=== PATIENT | male | born 1930 | race Caucasian/White ===

== ENCOUNTER 2019-06-24 11:41 | Emergency (ER) | payer MEDICARE, OTHER ==
[2019-06-24 13:37] LABS: Urine Appearance Clear; Urine Bilirubin Negative (Negative); Urine Blood Negative (Negative); Urine Color Yellow; Urine Glucose Negative (Negative); Urine Ketones Negative (Negative); Urine Nitrite Negative (Negative); Urine Protein Negative (Negative); Urine Specific Gravity 1.016 (1.010-1.030); Urine Urobilinogen Negative (Negative)
[2019-06-24 14:46] LABS: Hematocrit 33 % (42-52); Hemoglobin 11.1 g/dL (14.0-18.0); Mean Corpuscular HGB Conc 33 g/dL (31-36); Mean Corpuscular Hemoglobin 33 pg (27-31); Mean Corpuscular Volume 98 fL (80-94); Mean Platelet Volume 8.4 fL (7.4-10.4); Platelet Count 87 10^3/uL (150-450); Red Blood Count 3.39 10^6 /uL (4.18-5.48); Red Cell Distribution Width 16 % (10-15); White Blood Count 4.1 10^3/uL (3.5-10.8)
[2019-06-24 14:55] LABS: ABS Eosinophils 0.1 10^3/ul (0-0.6); ABS Lymphocytes 1.4 10^3/ul (1.0-4.8); ABS Monocytes 0.5 10^3/ul (0-0.8); ABS Neutrophils 2.1 10^3/ul (1.5-7.7); Eosinophil % 3.2 %; Lymphocyte % 33.2 %
[2019-06-24 15:06] LABS: Albumin 4.1 g/dL (3.2-5.2); Albumin/Globulin Ratio 1.5 (1-3); BUN/Creatinine Ratio 19.6 (8-20); C Reactive Protein 17.19 mg/L (<8.01); Calcium 8.7 mg/dL (8.6-10.3); EGFR African American 94.4 (>60); Globulin 2.8 g/dL (2-4); Potassium 4.4 mmol/L (3.5-5.0); Total Bilirubin 0.5 mg/dL (0.2-1.0); Total Protein 6.9 g/dL (6.4-8.9)
[2019-06-24 15:24] LABS: Polychromasia 1+
[2019-06-24 15:51] LABS: Troponin I 0.03 ng/mL (<0.04)
[2019-06-24 16:33] LABS: Activated Partial Thrombo Time 29.9 seconds (26.0-38.0)
--- NOTE | 2019-06-24 19:10 | ED ---
GI/ HPI - HPI Summary HPI Summary: 88 year old M presenting to [facility] accompanied by 2 daughters with a chief complaint of hematuria for the past 4 days. Daughter reports productive coughing , diaphoresis, and cold and thus was concerned for a flu. Daughter reports that patient is more confused than the slight confusion present at baseline ever since stroke. Daughter states patient does not complain of any pain. Daughter reports that there has not been any blood identified in the stool as of now. Patient reports that he had a root canal done in 1951 and 3-4 years ago it fell out leading to his visit to the dentist where the remaining pieces were taken out. Patient reports that he has had horrible pain in his gums up to his eye since around 6 months ago. 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 Patient reports that his neck is normal. Per triage, fever, dehydration, weakness, blood in urine, confusion, new incontinence. Pt denies any chills, erythema of eyes, sore throat, CP, SOB, abdominal pain, N/V, dysuria, myalgia, edema, rash, or dizziness.Symptoms aggravated by nothing. Symptoms alleviated by nothing. Hx stroke, leukemia, skin cancer. - History of Current Complaint Chief Complaint: EDGeneral Time Seen by Provider: 06/24/19 14:55 Stated Complaint: BLOOD IN URINE Hx Obtained From: Patient, Family/Print Binding Worker - daughters Onset/Duration: Started Days Ago - 4, Still Present Timing: Lasting Days Pain Intensity: 0 Associated Signs and Symptoms: Positive: Blood w/Stool, Diaphoresis, Hematuria, Other: - confusion, gum pain, fever, dehydration, weakness, new continence;; denies: erythema of eyes, sore throat, CP, SOB, myalgia, edema, rash, or dizziness. Negative: Nausea, Vomiting, Dysuria, Chills, Abdominal Pain - Allergy/Home Medications Allergies/Adverse Reactions: Allergies Allergy/AdvReac Type Severity Reaction Status Date / Time Sulfa (Sulfonamide Allergy Headache Verified 06/24/19 16:13 Antibiotics) PMH/Surg Hx/FS Hx/Imm Hx Cardiovascular History: Reports: Hx Coronary Artery Disease, Hx Hypercholesterolemia, Hx Hypertension GI History: Reports: Hx Gastroesophageal Reflux Disease Neurological History: Reports: Hx CVA Psychiatric History: Reports: Hx Depression - Cancer History Cancer Type, Location and Year: Leukemia, prostate CA Infectious Disease History: No Infectious Disease History: Denies: Traveled Outside the [place] in Last 30 Days - Family History Known Family History: Positive: Cardiac Disease - CAD, Diabetes Family History: Prostate CA. Ovarian CA - Social History Alcohol Use: Rare Hx Substance Use: No Substance Use Type: Reports: None Hx Tobacco Use: No Smoking Status (MU): Never Smoked Tobacco Review of Systems Positive: Fever, Skin Diaphoresis. Negative: Chills Negative: Erythema Negative: Sore Throat Negative: Chest Pain Positive: Cough. Negative: Shortness Of Breath Negative: Abdominal Pain, Vomiting, Nausea Positive: hematuria. Negative: dysuria Positive: Other - denies neck pain. Negative: Myalgia, Edema Negative: Rash Neurological: Other - denies dizziness;; reports confusion All Other Systems Reviewed And Are Negative: Yes Physical Exam - Summary Physical Exam Summary: Constitutional: Well-developed, Well-nourished, Alert. (-) Distressed Skin: Warm, Dry HENT: Normocephalic; Atraumatic Eyes: Conjunctiva normal Neck: Musculoskeletal ROM normal neck. (-) JVD, (-) Stridor, (-) Tracheal deviation Cardio: Rhythm regular, rate normal, Heart sounds normal; Intact distal pulses; The pedal pulses are 2+ and symmetric. Radial pulses are 2+ and symmetric. (-) Murmur Pulmonary/Chest wall: Effort normal. (-) Respiratory distress, (-) Wheezes, (-) Rales Abd: Soft, (-) tenderness, (-) Distension, (-) Guarding, (-) Rebound Musculoskeletal: (-) Edema Lymph: (-) Cervical adenopathy Neuro: Alert, Oriented x3 Psych: Mood and affect Normal Dental: Decay above his right canine which reports as painful no drainable abscess. Triage Information Reviewed: Yes Vital Signs On Initial Exam: Initial Vitals Temp Pulse Resp BP Pulse Ox 99.8 F 59 16 137/69 95 06/24/19 11:50 06/24/19 11:50 06/24/19 11:50 06/24/19 11:50 06/24/19 11:50 Vital Signs Reviewed: Yes Diagnostics - Vital Signs Vital Signs Temp Pulse Resp BP Pulse Ox 06/24/19 18:28 98.1 F 56 18 115/63 93 06/24/19 18:00 19 06/24/19 17:42 25 120/63 06/24/19 17:11 18 109/60 06/24/19 17:00 16 06/24/19 16:41 17 109/59 06/24/19 16:11 57 22 112/60 94 06/24/19 16:00 56 19 94 06/24/19 15:09 56 22 06/24/19 13:48 99.9 F 57 20 135/56 95 06/24/19 11:50 99.8 F 59 16 137/69 95 - Laboratory Lab Results: Lab Results 06/24/19 06/24/19 06/24/19 Range/Units 13:20 14:32 14:32 WBC 4.1 (3.5-10.8) 10^3/uL RBC 3.39 L (4.18-5.48) 10^6 /uL Hgb 11.1 L (14.0-18.0) g/dL Hct 33 L (42-52) % MCV 98 H (80-94) fL MCH 33 H (27-31) pg MCHC 33 (31-36) g/dL RDW 16 H (10-15) % Plt Count 87 L (150-450) 10^3/uL MPV 8.4 (7.4-10.4) fL Neut % (Auto) 51.9 % Lymph % (Auto) 33.2 % Blount % (Auto) 11.5 % Eos % (Auto) 3.2 % Baso % (Auto) 0.2 % Absolute Neuts (auto) 2.1 (1.5-7.7) 10^3/ul Absolute Lymphs (auto) 1.4 (1.0-4.8) 10^3/ul Absolute Monos (auto) 0.5 (0-0.8) 10^3/ul Absolute Eos (auto) 0.1 (0-0.6) 10^3/ul Absolute Basos (auto) 0.0 (0-0.2) 10^3/ul Absolute Nucleated RBC 0.0 10^3/ul Nucleated RBC % 0.0 Polychromasia 1+ Macrocytosis 2+ Elliptocytes 1+ INR (Anticoag Therapy) (0.82-1.09) APTT (26.0-38.0) seconds Sodium 136 (135-145) mmol/L Potassium 4.4 (3.5-5.0) mmol/L Chloride 103 (101-111) mmol/L Carbon Dioxide 27 (22-32) mmol/L Anion Gap 6 (2-11) mmol/L BUN 18 (6-24) mg/dL Creatinine 0.92 (0.67-1.17) mg/dL Est GFR ( Amer) 94.4 (>60) Est GFR (Non-Af Amer) 78.0 (>60) BUN/Creatinine Ratio 19.6 (8-20) Glucose 105 H (70-100) mg/dL Lactic Acid (0.5-2.0) mmol/L Calcium 8.7 (8.6-10.3) mg/dL Total Bilirubin 0.50 (0.2-1.0) mg/dL AST 14 (13-39) U/L ALT 11 (7-52) U/L Alkaline Phosphatase 66 (34-104) U/L Troponin I 0.03 (<0.04) ng/mL C-Reactive Protein 17.19 H (<8.01) mg/L Total Protein 6.9 (6.4-8.9) g/dL Albumin 4.1 (3.2-5.2) g/dL Globulin 2.8 (2-4) g/dL Albumin/Globulin Ratio 1.5 (1-3) Urine Color Yellow Urine Appearance Clear Urine pH 7.0 (5-9) Ur Specific [place] 1.016 (1.010-1.030) Urine Protein Negative (Negative) Urine Ketones Negative (Negative) Urine Blood Negative (Negative) Urine Nitrate Negative (Negative) Urine Bilirubin Negative (Negative) Urine Urobilinogen Negative (Negative) Ur Leukocyte Esterase Negative (Negative) Urine Glucose Negative (Negative) Urine Ascorbic Acid * A (Negative) 06/24/19 06/24/19 06/24/19 Range/Units 14:32 16:06 16:06 WBC (3.5-10.8) 10^3/uL RBC (4.18-5.48) 10^6 /uL Hgb (14.0-18.0) g/dL Hct (42-52) % MCV (80-94) fL MCH (27-31) pg MCHC (31-36) g/dL RDW (10-15) % Plt Count (150-450) 10^3/uL MPV (7.4-10.4) fL Neut % (Auto) % Lymph % (Auto) % Blount % (Auto) % Eos % (Auto) % Baso % (Auto) % Absolute Neuts (auto) (1.5-7.7) 10^3/ul Absolute Lymphs (auto) (1.0-4.8) 10^3/ul Absolute Monos (auto) (0-0.8) 10^3/ul Absolute Eos (auto) (0-0.6) 10^3/ul Absolute Basos (auto) (0-0.2) 10^3/ul Absolute Nucleated RBC 10^3/ul Nucleated RBC % Polychromasia Macrocytosis Elliptocytes INR (Anticoag Therapy) 1.00 (0.82-1.09) APTT 29.9 (26.0-38.0) seconds Sodium (135-145) mmol/L Potassium (3.5-5.0) mmol/L Chloride (101-111) mmol/L Carbon Dioxide (22-32) mmol/L Anion Gap (2-11) mmol/L BUN (6-24) mg/dL Creatinine (0.67-1.17) mg/dL Est GFR ( Amer) (>60) Est GFR (Non-Af Amer) (>60) BUN/Creatinine Ratio (8-20) Glucose (70-100) mg/dL Lactic Acid 0.8 1.0 (0.5-2.0) mmol/L Calcium (8.6-10.3) mg/dL Total Bilirubin (0.2-1.0) mg/dL AST (13-39) U/L ALT (7-52) U/L Alkaline Phosphatase (34-104) U/L Troponin I (<0.04) ng/mL C-Reactive Protein (<8.01) mg/L Total Protein (6.4-8.9) g/dL Albumin (3.2-5.2) g/dL Globulin (2-4) g/dL Albumin/Globulin Ratio (1-3) Urine Color Urine Appearance Urine pH (5-9) Ur Specific [place] (1.010-1.030) Urine Protein (Negative) Urine Ketones (Negative) Urine Blood (Negative) Urine Nitrate (Negative) Urine Bilirubin (Negative) Urine Urobilinogen (Negative) Ur Leukocyte Esterase (Negative) Urine Glucose (Negative) Urine Ascorbic Acid (Negative) 06/24/19 Range/Units 17:23 WBC (3.5-10.8) 10^3/uL RBC (4.18-5.48) 10^6 /uL Hgb (14.0-18.0) g/dL Hct (42-52) % MCV (80-94) fL MCH (27-31) pg MCHC (31-36) g/dL RDW (10-15) % Plt Count (150-450) 10^3/uL MPV (7.4-10.4) fL Neut % (Auto) % Lymph % (Auto) % Blount % (Auto) % Eos % (Auto) % Baso % (Auto) % Absolute Neuts (auto) (1.5-7.7) 10^3/ul Absolute Lymphs (auto) (1.0-4.8) 10^3/ul Absolute Monos (auto) (0-0.8) 10^3/ul Absolute Eos (auto) (0-0.6) 10^3/ul Absolute Basos (auto) (0-0.2) 10^3/ul Absolute Nucleated RBC 10^3/ul Nucleated RBC % Polychromasia Macrocytosis Elliptocytes INR (Anticoag Therapy) (0.82-1.09) APTT (26.0-38.0) seconds Sodium (135-145) mmol/L Potassium (3.5-5.0) mmol/L Chloride (101-111) mmol/L Carbon Dioxide (22-32) mmol/L Anion Gap (2-11) mmol/L BUN (6-24) mg/dL Creatinine (0.67-1.17) mg/dL Est GFR ( Amer) (>60) Est GFR (Non-Af Amer) (>60) BUN/Creatinine Ratio (8-20) Glucose (70-100) mg/dL Lactic Acid (0.5-2.0) mmol/L Calcium (8.6-10.3) mg/dL Total Bilirubin (0.2-1.0) mg/dL AST (13-39) U/L ALT (7-52) U/L Alkaline Phosphatase (34-104) U/L Troponin I 0.03 (<0.04) ng/mL C-Reactive Protein (<8.01) mg/L Total Protein (6.4-8.9) g/dL Albumin (3.2-5.2) g/dL Globulin (2-4) g/dL Albumin/Globulin Ratio (1-3) Urine Color Urine Appearance Urine pH (5-9) Ur Specific [place] (1.010-1.030) Urine Protein (Negative) Urine Ketones (Negative) Urine Blood (Negative) Urine Nitrate (Negative) Urine Bilirubin (Negative) Urine Urobilinogen (Negative) Ur Leukocyte Esterase (Negative) Urine Glucose (Negative) Urine Ascorbic Acid (Negative) Result Diagrams: 06/24/19 14:32 06/24/19 14:32 Lab Statement: Any lab studies that have been ordered have been reviewed, and results considered in the medical decision making process. - Radiology Chest X-Ray Radiology Interpretation Completed By: Radiologist Summary of Radiographic Findings: Per radiologist,. 1. POSSIBLE LEFT UPPER LOBE PULMONARY NODULE RECOMMEND A CT OF THE CHEST WITHOUT CONTRAST. FOR FURTHER EVALUATION. 2. NO EVIDENCE FOR ACUTE FINDING. ED physician has reviewed this imaging report. - CT Maxillofacial CT CT Interpretation Completed By: Radiologist Summary of CT Findings: Per radiologist,. No acute facial bone fracture or dislocation. ED physician has reviewed this report. Chest/Abdomen/Pelvis CT CT Interpretation Completed By: Radiologist Summary of CT Findings: Per radiologist,. 1. Extensive diverticulosis left side of the colon without diverticulitis or. colitis. No abscess or obstruction. 2. No other acute disease seen on nonenhanced study. As Above. ED physician has reviewed this imaging report. GIGU Course/Dx - Course Course Of Treatment: 88 year old M presenting to [facility] accompanied by 2 daughters with a chief complaint of hematuria for the past 4 days. Daughter reports productive coughing, diaphoresis, and cold and thus was concerned for a flu. Daughter reports that patient is more confused than the slight confusion present at baseline ever since stroke. Daughter states patient does not complain of any pain. Daughter reports that there has not been any blood identified in the stool as of now. Patient reports that he had a root canal done in 1951 and 3-4 years ago it fell out leading to his visit to the dentist where the remaining pieces were taken out. Patient reports that he has had horrible pain in his gums up to his eye since around 6 months ago. 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 Patient reports that his neck is normal. Per triage, fever, dehydration, weakness, blood in urine, confusion, new incontinence. Pt denies any chills, erythema of eyes, sore throat, CP, SOB, abdominal pain, N/V, dysuria, myalgia, edema, rash, or dizziness. Physical exam reveals no abnormalities except for Decay above his right canine which reports as painful no drainable abscess. Bloodwork shows no abnormalities except for RBC 3.39 L, Hgb 11.1 L, Hct 33 L, MCV 98 H, MCH 33 H, RDW 16 H, Plt Count 87 L, Glucose 105 H, and C-Reactive Protein 17.19 H. Urinalysis shows no abnormalities except for Urine Ascorbic Acid A. Chest X- Ray reveals 1. POSSIBLE LEFT UPPER LOBE PULMONARY NODULE RECOMMEND A CT OF THE CHEST WITHOUT CONTRAST. FOR FURTHER EVALUATION. 2. NO EVIDENCE FOR ACUTE FINDING. Maxillofacial CT reveals No acute facial bone fracture or dislocation. Chest/Abdomen/Pelvis CT reveals 1. Extensive diverticulosis left side of the colon without diverticulitis or. colitis. No abscess or obstruction. 2. No other acute disease seen on nonenhanced study. As Above. Physician discusses discharge with patient who agrees to discharge. Patient will be discharged and follow up with dentist and primary care provider within 3 days. - Diagnoses Provider Diagnoses: Pain, dental Discharge ED - Sign-Out/Discharge Documenting (check all that apply): Patient Departure - discharge Patient Received Moderate/Deep Sedation with Procedure: No - Discharge Plan Condition: Stable Disposition: HOME Prescriptions: Penicillin VK TAB* [Penicillin VK 250 mg Tab*] 500 mg PO QID #21 tab Referrals: Bassam Broussard MD [Primary Care Provider] - 3 Days Additional Instructions: Follow up with dentist and primary care provider within 2-3 days. Return to ED for any new or worsening symptoms. - Billing Disposition and Condition Condition: STABLE Disposition: Home - Attestation Statements Document Initiated by Scribe: Yes Documenting Scribe: Aliya Asif Provider For Whom Scribe is Documenting (Include Credential): Dr. Alban Leo MD Scribe Attestation: Aliya Naidu, scribed for Dr. Alban Leo MD on 07/06/19 at 1431. Scribe Documentation Reviewed: Yes Provider Attestation: The documentation as recorded by the scribe, Aliya Asif accurately reflects the service I personally performed and the decisions made by me, Dr. Alban Leo MD Status of Scribe Document: Viewed
[2019-06-24] MEDS ORDERED: Penicillin VK TAB* 250 MG PO ONE (22:35)
[2019-06-24 23:55] VITALS: BP 134/67
== END 2019-06-24 23:52 | disposition home or self-care (01) ==
LOC: ED 11:41
DX: K08.89 Other specified disorders of teeth and supporting structures (principal); K57.30 Diverticulosis of large intestine without perforation or abscess without bleeding; I25.10 Atherosclerotic heart disease of native coronary artery without angina pectoris; E78.00 Pure hypercholesterolemia, unspecified; I10 Essential (primary) hypertension; K21.9 Gastro-esophageal reflux disease without esophagitis; F32.9 Major depressive disorder, single episode, unspecified; Z86.73 Personal history of transient ischemic attack (TIA), and cerebral infarction without residual deficits; Z88.2 Allergy status to sulfonamides
CPT/HCPCS: 36415; 70486; 71045; 71250; 74176; 80053; 81003; 83605; 84484; 85025; 85610; 85730; 86140; 87040; 93005; 99283

== ENCOUNTER 2022-03-01 17:06 | Observation (INO) ==
[2022-03-01 17:53] LABS: ABS Eosinophils 0.1 10^3/ul (0-0.6); ABS Lymphocytes 1.1 10^3/ul (1.0-4.8); ABS Monocytes 0.3 10^3/ul (0-0.8); Eosinophil % 3.9 %; Hematocrit 29 % (42-52); Hemoglobin 9.4 g/dL (14.0-18.0); Lymphocyte % 44.1 %; Mean Corpuscular HGB Conc 33 g/dL (31-36); Mean Corpuscular Hemoglobin 31 pg (27-31); Mean Corpuscular Volume 93 fL (80-94); Mean Platelet Volume 8.3 fL (7.4-10.4); Nucleated Red Blood Cells % 0.1; Platelet Count 71 10^3/uL (150-450); Red Blood Count 3.08 10^6 /uL (4.18-5.48); Red Cell Distribution Width 17 % (10-15); White Blood Count 2.5 10^3/uL (3.5-10.8)
[2022-03-01 17:56] LABS: INR 1.26 (0.86-1.15)
[2022-03-01 18:31] LABS: Albumin 3.5 g/dL (3.2-5.2); Albumin/Globulin Ratio 1.6 (1-3); Calcium 7.6 mg/dL (8.6-10.3); Globulin 2.2 g/dL (2-4); Total Bilirubin 0.5 mg/dL (0.2-1.0); Total Protein 5.7 g/dL (6.4-8.9); eGFR CKD-EPI 57.8 (>60)
[2022-03-01 19:17] LABS: High Sensitivity Troponin 1 Hr 142 pg/mL (<20)
[2022-03-01] MEDS ORDERED: NS 0.9% 1000 ml BAG 1,000 ML IV SCH (21:00)
[2022-03-01] MEDS ORDERED: CALCIUM GLUCONATE 1GM/50ML NS 1 GM/50 ML BAG IV ONE (22:08)
[2022-03-01] MEDS: Heparin 5000 UNITS/ML 1 mL VIAL SUBCUT SCH (22:32)
[2022-03-02 07:08] LABS: ABS Eosinophils 0.1 10^3/ul (0-0.6); ABS Lymphocytes 1.2 10^3/ul (1.0-4.8); ABS Monocytes 0.3 10^3/ul (0-0.8); ABS Neutrophils 1.4 10^3/ul (1.5-7.7); Eosinophil % 3.5 %; Hematocrit 30 % (42-52); Hemoglobin 9.8 g/dL (14.0-18.0); Lymphocyte % 41.5 %; Mean Corpuscular HGB Conc 33 g/dL (31-36); Mean Corpuscular Hemoglobin 31 pg (27-31); Mean Corpuscular Volume 94 fL (80-94); Mean Platelet Volume 8.5 fL (7.4-10.4); Nucleated Red Blood Cells % 0.1; Platelet Count 67 10^3/uL (150-450); Red Blood Count 3.17 10^6 /uL (4.18-5.48); Red Cell Distribution Width 17 % (10-15)
[2022-03-02 07:11] LABS: Albumin 3.6 g/dL (3.2-5.2); Albumin/Globulin Ratio 1.4 (1-3); Globulin 2.5 g/dL (2-4); HDL Cholesterol 27.1 mg/dL; Magnesium 2.3 mg/dL (1.9-2.7); Potassium 4.1 mmol/L (3.5-5.0); Total Bilirubin 0.5 mg/dL (0.2-1.0); Total Protein 6.1 g/dL (6.4-8.9); eGFR CKD-EPI 67.1 (>60)
[2022-03-02 07:12] LABS: Phosphorus 2.8 mg/dL (2.5-5.0)
[2022-03-02 07:26] LABS: TSH Ultra Thyroid Stim Horm 2.69 mcIU/mL (0.34-5.60)
[2022-03-02 07:32] LABS: Ferritin 631.2 ng/mL (24-336)
[2022-03-02 07:39] LABS: Vitamin D Total 25(OH) 25.1 ng/mL (20-50)
[2022-03-02] MEDS: Cholecalciferol (VIT D3) 1,000 unit TAB PO SCH (09:56)
[2022-03-02] MEDS: Heparin 5000 UNITS/ML 1 mL VIAL SUBCUT SCH ×2 (09:57→21:14)
[2022-03-02 15:20] LABS: C Reactive Protein 7.77 mg/L (<8.01)
[2022-03-03 05:22] LABS: ABS Eosinophils 0.1 10^3/ul (0-0.6); ABS Lymphocytes 1.2 10^3/ul (1.0-4.8); ABS Monocytes 0.2 10^3/ul (0-0.8); Eosinophil % 3.9 %; Hematocrit 28 % (42-52); Hemoglobin 9.2 g/dL (14.0-18.0); Lymphocyte % 46.6 %; Mean Corpuscular HGB Conc 33 g/dL (31-36); Mean Corpuscular Hemoglobin 31 pg (27-31); Mean Corpuscular Volume 92 fL (80-94); Mean Platelet Volume 9.5 fL (7.4-10.4); Nucleated Red Blood Cells % 0.1; Platelet Count 71 10^3/uL (150-450); Red Blood Count 2.99 10^6 /uL (4.18-5.48); Red Cell Distribution Width 17 % (10-15); White Blood Count 2.5 10^3/uL (3.5-10.8)
[2022-03-03 06:15] LABS: Calcium 7.8 mg/dL (8.6-10.3); eGFR CKD-EPI 74.6 (>60)
[2022-03-03] MEDS: Cholecalciferol (VIT D3) 1,000 unit TAB PO SCH (10:15)
[2022-03-03] MEDS: Heparin 5000 UNITS/ML 1 mL VIAL SUBCUT SCH ×2 (10:16→20:46)
[2022-03-03 14:27] LABS: PSA Screening Total 110.087 ng/mL (0-4.000)
[2022-03-03] MEDS ORDERED: Cholecalciferol (VIT D3) 50,000 UNIT CAP (NF) PO ONE (15:14)
[2022-03-04 06:46] LABS: ABS Eosinophils 0.1 10^3/ul (0-0.6); ABS Lymphocytes 1.2 10^3/ul (1.0-4.8); ABS Monocytes 0.2 10^3/ul (0-0.8); ABS Neutrophils 1.1 10^3/ul (1.5-7.7); Eosinophil % 3.3 %; Hematocrit 28 % (42-52); Hemoglobin 9.4 g/dL (14.0-18.0); Lymphocyte % 45.2 %; Mean Corpuscular HGB Conc 34 g/dL (31-36); Mean Corpuscular Hemoglobin 31 pg (27-31); Mean Corpuscular Volume 93 fL (80-94); Mean Platelet Volume 8.2 fL (7.4-10.4); Nucleated Red Blood Cells % 0.1; Platelet Count 65 10^3/uL (150-450); Red Blood Count 3.02 10^6 /uL (4.18-5.48); Red Cell Distribution Width 17 % (10-15); White Blood Count 2.6 10^3/uL (3.5-10.8)
[2022-03-04 07:14] LABS: Calcium 8.1 mg/dL (8.6-10.3); Magnesium 2.1 mg/dL (1.9-2.7); Potassium 4.2 mmol/L (3.5-5.0); eGFR CKD-EPI 77.5 (>60)
[2022-03-04] MEDS: Cholecalciferol (VIT D3) 1,000 unit TAB PO SCH (10:01)
[2022-03-04] MEDS: Heparin 5000 UNITS/ML 1 mL VIAL SUBCUT SCH (10:01)
[2022-03-04 11:08] LABS: PSA Screening Total 111.456 ng/mL (0-4.000)
[2022-03-04 14:59] VITALS: BP 156/72
[2022-03-05 16:59] LABS: Urine Volume 650 mL
== END 2022-03-04 14:04 | disposition home or self-care (01) ==
LOC: ED 17:06 → EDHOLD 21:00 → INTOOBSV 21:00 → SUATTDRO 21:00 → MEDTELE 03-02 00:24
PROVIDERS: ADMIT Internal Medicine; ATTEND Internal Medicine